=== PATIENT | male | born 1985 | race Caucasian/White ===

== ENCOUNTER 2017-07-30 20:59 | Emergency (ER) | payer OTHER ==
[2017-07-30] MEDS ORDERED: LET GEL TOPICAL 1 EA SYR TP ONE (21:19)
[2017-07-30 21:21] VITALS: BP 142/85
[2017-07-30] MEDS ORDERED: IBUPROFEN 600 MG TAB PO ONE (21:25)
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
== END 2017-07-30 22:07 | disposition home or self-care (01) ==
LOC: CED 20:59
DX: S63.641A Sprain of metacarpophalangeal joint of right thumb, initial encounter (principal); S16.1XXA Strain of muscle, fascia and tendon at neck level, initial encounter; S09.90XA Unspecified injury of head, initial encounter; T14.8XXA Other injury of unspecified body region, initial encounter; V28.0XXA Motorcycle driver injured in noncollision transport accident in nontraffic accident, initial encounter; Y92.410 Unspecified street and highway as the place of occurrence of the external cause; Y99.8 Other external cause status; Y93.89 Activity, other specified
CPT/HCPCS: 73130-PO; L3807